=== PATIENT | male | born 2005 | race Hispanic/Latino ===

== ENCOUNTER 2024-05-17 16:37 | Emergency (ER) | payer OTHER, SELFPAY ==
[2024-05-17] MEDS ORDERED: ACETAMINOPHEN 500 MG TAB ONE (17:04)
[2024-05-17] MEDS ORDERED: IBUPROFEN 400 MG TAB ONE (17:05)
[2024-05-17 17:33] LABS: SARS-CoV-2 Antigen CONTROL BLUE LINE VIS/BG OK; SARS-CoV-2 Antigen Rapid Res Negative (Negative)
--- NOTE | 2024-05-17 17:36 | ER ---
Nurse's Notes [facility] Name: Pierre Curry Age: 19 yrs Sex: Male : 2005 Arrival Date: 05/17/2024 Time: 16:37 Bed DX3 Private MD: Diagnosis: Influenza due to identified novel influenza A virus Presentation: 05/17 17:05 Chief complaint: Patient states: sore throat, slight cough, headache, and fever. aa5 Coronavirus screen: fever, headache. Ebola Screen: Patient denies travel to an Ebola-affected area in the 21 days before illness onset. Initial Sepsis Screen: Does the patient meet any 2 criteria? HR > 90 bpm. Does the patient have a suspected source of infection? No. Patient's initial sepsis screen is negative. Risk Assessment: Do you want to hurt yourself or someone else? Patient reports no desire to harm self or others. Onset of symptoms was May 2024. 17:05 Method Of Arrival: Ambulatory aa5 17:05 Acuity: TAD 4 aa5 Historical: - Allergies: 17:05 No Known Allergies; aa5 - PMHx: 17:05 None; aa5 Assessment: 17:45 Reassessment: Patient is alert, oriented x 3, equal unlabored respirations, skin aa5 warm/dry/pink. Vital Signs: 17:05 BP 150 / 100; Pulse 110; Resp 24 S; Temp 103.1(O); Pulse Ox 99% on R/A; Weight 99.79 kg aa5 (R); Height 6 ft. 1 in. (R); 17:44 Resp 16 S; Temp 100.8(O); aa5 17:05 Body Mass Index 29.03 (99.79 kg, 185.42 cm) aa5 ED Course: 16:42 Patient arrived in ED. mg5 17:03 Patrick Jacob FNP-C is PHCP. dr5 17:03 Jessica Begum MD is Attending Physician. dr5 17:05 Arm band placed on. aa5 17:06 Triage completed. aa5 17:40 Chest Pa And Lat (2 Views) XRAY In Process Unspecified. EDMS 17:45 No provider procedures requiring assistance completed. Patient did not have IV access aa5 during this emergency room visit. Administered Medications: 17:11 Drug: Acetaminophen PO 1000 mg PO once Route: PO; aa5 17:45 Follow up: Response: No adverse reaction aa5 17:12 Drug: Ibuprofen PO 800 mg PO once Route: PO; aa5 17:45 Follow up: Response: No adverse reaction aa5 Outcome: 17:36 Discharge ordered by . ginny 17:45 Discharged to home ambulatory, with family, aa5 17:45 Condition: stable 17:45 Discharge instructions given to patient, Instructed on discharge instructions, follow up and referral plans. medication usage, Demonstrated understanding of instructions, follow-up care, medications, Prescriptions given X 2, 17:46 Patient left the ED. aa5 Signatures: Dispatcher [employer] Ying Mendosa RN RN aa5 Addis John mg5 Patrick Jacob, JHONY-C ED TECH-Cdr5 Corrections: (The following items were deleted from the chart) 17:45 17:05 BP 150 / 100; Pulse 11bpm; Resp 24bpm; Spontaneous; Pulse Ox 99% RA; Temp 103.1F aa5 Oral; 99.79 kg Reported; Height 6 ft. 1 in. Reported; BMI: 29.0; aa5
--- NOTE | 2024-05-17 17:36 | EDPHYS ---
Physician Documentation [facility] Name: Pierre Curry Age: 19 yrs Sex: Male : 2005 Arrival Date: 05/17/2024 Time: 16:37 Bed DX3 Private MD: ED Physician Jessica Begum HPI: 05/17 17:04 This 19 yrs old Male presents to ER via Unassigned with complaints of Fever, dr5 Flu Symptoms. 17:04 Pt is a 19 year old male presenting with headache, fever, body aches, cough for the dr5 past 2 days. Pt took Tylenol today around 1000 this morning. Pt denies any medical problems, no daily medications.. Historical: - Allergies: 17:05 No Known Allergies; aa5 - PMHx: 17:05 None; aa5 ROS: 17:09 Constitutional: as per hpi dr5 Exam: 17:09 Constitutional: This is a well developed, well nourished patient who is awake, alert, dr5 and in no acute distress. Head/Face: Normocephalic, atraumatic. Neck: Trachea midline, no thyromegaly or masses palpated, and no cervical lymphadenopathy. Supple, full range of motion without nuchal rigidity, or vertebral point tenderness. No Meningismus. Chest/axilla: Normal chest wall appearance and motion. Nontender with no deformity. No lesions are appreciated. 17:09 Cardiovascular: Rate: tachycardic, Rhythm: regular, Pulses: Heart sounds: normal, 17:09 Respiratory: Exam negative for acute changes, 17:09 Back: Exam negative for acute changes, 17:09 Skin: Exam negative for 17:09 Neuro: Exam negative for Vital Signs: 17:05 BP 150 / 100; Pulse 110; Resp 24 S; Temp 103.1(O); Pulse Ox 99% on R/A; Weight 99.79 kg aa5 (R); Height 6 ft. 1 in. (R); 17:44 Resp 16 S; Temp 100.8(O); aa5 17:05 Body Mass Index 29.03 (99.79 kg, 185.42 cm) aa5 MDM: 17:10 Medical Screening Exam initiated dr5 17:52 Differential diagnosis: viral Infection, bacterial infection, URI, Flu A. Data dr5 reviewed: vital signs, nurses notes, lab test result(s), Flu: positive. I considered the following discharge prescriptions or medication management in the emergency department Medications were administered in the Emergency Department. See MAR. Historians other than the Patient: Parent: Father. Care significantly affected by the following Social Determinants of Health: Poor access to healthcare and/or lack of insurance, Poor access to transportation, Problems related to employment. Counseling: I had a detailed discussion with the patient and/or guardian regarding the historical points, exam findings, and any diagnostic results supporting the discharge/admit diagnosis, the presence of at least one elevated blood pressure reading (>120/80) during this emergency department visit, lab results, radiology results, the need for outpatient follow up, for definitive care, a family practitioner. Medication response: ibuprofen administration has improved the patient's temperature, ibuprofen administration has improved the patient's pain, acetaminophen administration has lowered the patient's temperature. Response to treatment: the patient's symptoms have markedly improved after treatment. ED course: Patient states x-ray was negative for pneumonia. Patient was positive for influenza A. Recommended increased hydration. Stressed and educated alternating Tylenol and Motrin every 3 hours for fever. Tamiflu prescribed with cough medication. All questions answered.. 05/17 17:06 Order name: SARS RAPID; Complete Time: 17:34 dr5 05/17 17:06 Order name: Influenza Screen (a \T\ B); Complete Time: 17:36 dr5 05/17 17:06 Order name: Strep dr5 05/17 17:37 Order name: Throat Culture EDNV 05/17 17:06 Order name: Chest Pa And Lat (2 Views) XRAY; Complete Time: 17:52 dr5 Administered Medications: 17:11 Drug: Acetaminophen PO 1000 mg PO once Route: PO; aa5 17:45 Follow up: Response: No adverse reaction aa5 17:12 Drug: Ibuprofen PO 800 mg PO once Route: PO; aa5 17:45 Follow up: Response: No adverse reaction aa5 Disposition Summary: 05/17/24 17:36 Discharge Ordered Notes: Location: Home dr5 Condition: Stable dr5 Diagnosis - Influenza due to identified novel influenza A virus dr5 Followup: dr5 - With: Emergency Department - When: As needed - Reason: Worsening of condition Followup: dr5 - With: Private Physician - When: 1 - 2 days - Reason: Recheck today's complaints, Continuance of care, Re-evaluation by your physician Discharge Instructions: - Discharge Summary Sheet dr5 - Influenza, Adult dr5 Forms: - Work release form dr5 - Medication Reconciliation Form dr5 - Patient Portal Instructions dr5 - Leadership Thank You Letter dr5 Prescriptions: - benzonatate 100 mg Oral capsule - take 1 capsule ORAL route 3 times per day; 30 capsule; Refills: 0, Product dr5 Selection Permitted - Tamiflu 75 mg Oral capsule - take 1 tablet ORAL route every 12 hours for 5 days; 10 tablet; Refills: 0, dr5 Product Selection Permitted Signatures: Dispatcher [employer] Ying Mendosa RN RN aa5 Patrick Jacob, MATTRESS WEAVER-C MATTRESS WEAVER-Cdr5 Corrections: (The following items were deleted from the chart) 17:15 17:04 Pt is a 19 year old male presenting with headache, fever, body aches, cough for dr5 the past 2 days. Pt took Tylenol today around 1000 this morning.. dr5
--- NOTE | 2024-05-17 17:44 | RAD REPORT ---
EXAM: Chest Pa And Lat (2 Views) HISTORY: CONGESTION COMPARISON: 02/29/2016 FINDINGS: LUNGS/PLEURA: The lungs are clear. No pleural effusions or pneumothorax. No pulmonary edema. MEDIASTINUM: The mediastinal silhouette is within normal limits. CARDIAC: The cardiac silhouette is within normal limits. UPPER ABDOMEN: No significant abnormality. BONES: No acute fracture. LINES/TUBES/OTHER: N/A IMPRESSION: No evidence of acute cardiopulmonary disease.
[2024-05-17 20:31] VITALS: BP 150/100; O2SAT 99
[2024-05-17 20:32] VITALS: TEMP 100.8
== END 2024-05-17 17:46 | disposition home or self-care (01) ==
LOC: ER 16:37
DX: J10.1 Influenza due to other identified influenza virus with other respiratory manifestations (principal); Z11.52 Encounter for screening for COVID-19
CPT/HCPCS: 36415; 71046; 87070; 87081; 87804; 87811; 99283